=== PATIENT | male | born 1960 | race Two or more races ===

== ENCOUNTER → 2024-03-24 | Outpatient (CLI) | payer MEDICARE, MEDICAID, SELFPAY ==
[2024-03-24 14:53] LABS: Basophils % (Auto) 1 % (0-2.5); Eosinophils # (Auto) 0.1 Thou/mm3 (0.0-0.5); Eosinophils % (Auto) 1 % (0-10); Hematocrit 41.9 % (41.0-53.0); Hemoglobin 13.8 g/dL (13.5-16.0); Immature Granulocytes % (Auto) 0 % (0-0); Immature Granulocytes Auto 0.02 Thou/mm3 (0.00-0.00); Lymphocytes # (Auto) 1.1 Thou/mm3 (1.0-4.8); Lymphocytes % (Auto) 14 % (10-50); Mean Corpuscular HGB Conc 32.9 g/dl (31.0-37.0); Mean Corpuscular Volume 88 fL (80-100); Monocytes # (Auto) 0.6 Thou/mm3 (0.0-0.8); Monocytes % (Auto) 7 % (0-12); Neutrophils # (Auto) 5.8 Thou/mm3 (1.8-7.7); Neutrophils % (Auto) 77 % (37-80); Nucleated Red Blood Cell % 0 /100 WBC (0); Platelet Count 209 Thou/mm3 (140-440); Red Blood Count 4.76 Miln/mm3 (4.50-5.90); White Blood Count 7.6 Thou/mm3 (3.8-10.6)
[2024-03-24 15:05] LABS: Alanine Aminotransferase 33 U/L (10-49); Albumin, Serum 4.4 gm/dL (3.4-4.8); Albumin/Globulin Ratio 1.8 (1.2-2.2); Alkaline Phosphatase 87 U/L (46-116); Anion Gap 7 (7-16); Aspartate Amino Transferase 26 U/L (0-34); BUN/Creatinine Ratio 15 Ratio (12-20); Bilirubin,Total 0.6 mg/dL (0.3-1.2); Blood Urea Nitrogen 18 mg/dL (9-23); Calcium 9.7 mg/dL (8.3-10.6); Calcium (Corrected) 9.7 mg/dL (8.5-10.1); Carbon Dioxide 28.9 mMol/L (20.0-31.0); Chloride 104 mMol/L (98-107); Creatinine (Component) 1.2 mg/dL (0.6-1.3); Globulin 2.5 gm/dL (2.3-3.5); Glucose 89 mg/dL (74-106); Osmolality,Calculated 280 (275-295); Potassium 4.2 mMol/L (3.4-5.1); Sodium 140 mMol/L (136-145); Total Protein 6.9 gm/dL (5.7-8.2); eGFR > 60 See Note
[2024-04-01 03:04] LABS: Alpha-1-Globulin 0.2 g/dL (0.2-0.3); Alpha-2-Globulin 0.5 g/dL (0.5-0.9); Beta-1-Globulin 0.4 g/dL (0.4-0.6); Beta-2-globulin 0.3 g/dL (0.2-0.5); Gamma Globulin 1.3 g/dL (0.8-1.7); Immunoglobulin A 107 mg/dL (70-320); Immunoglobulin G 1426 mg/dL (600-1540); Kappa Light Chain, Free 29.6 mg/L (3.3-19.4); Lambda Light Chain, Free 19.6 mg/L (5.7-26.3)
[2024-04-01 06:28] LABS: Beta 2 Microglobulin 2.28 mg/L (< OR = 2.51); Immunoglobulin M 71 mg/dL (50-300); Kappa/Lambda, Free Ratio 1.51 (0.26-1.65); Protein, total, serum 6.7 g/dL (6.1-8.1)
== END | disposition home or self-care (01) ==
PROVIDERS: PCP Family Medicine; Referring Provider Internal Medicine Hematology & Oncology; Visit Provider Internal Medicine Hematology & Oncology
DX: R80.9 Proteinuria, unspecified (principal)
CPT/HCPCS: 36415; 80053; 82232; 82784; 83521; 84155; 84165; 85025; 86334

== ENCOUNTER 2024-04-01 09:57 | Outpatient (RCR) | payer MEDICARE, MEDICAID, SELFPAY ==
--- NOTE | 2024-04-07 05:26 | CTCFLWUP_ITS ---
Patient: YANN MITCHELL : 1960 Page 2 of 2 FOLLOW UP NOTE DATE OF SERVICE: 04/01/2024 NAME: YANN MITCHELL ACCOUNT: [id number] : 1960 AGE: 63 REASON FOR VISIT: Follow-up on referral abnormal protein ONCOLOGY HISTORY: Patient was referred for MGUS but patient have no monoclonal protein INTERVAL HISTORY: Mr. Mitchell was referred to us because of a M spike in urine protein electrophoresis pattern. 12/27/2021: Urine protein electrophoresis 02/15/2022: Urine protein immunofixation electrophoresis as well as random urine electrophoresis? 02/15/2022: Serum protein electrophoresis, serum immunofixation electrophoresis and quantitative immu noglobulin levels as well as free light chain assay 01/02/2023: Serum protein electrophoresis? 08/27/2023: Serum protein electrophoresis, serum immunofixation electrophoresis, quantitative immunoglo bulin level, free light chain assay DIAGNOSIS: No evidence of monoclonal gammopathy. 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 Tobacco?Use:?Denies ETOH Use:?Quit 15yrs ago - Drank 6 pack/day - for 30yrs Drug?Note:?Denies Social?History?Note:?Lives?with? MEDICATIONS: 1. aspirin - 81 mg 1 tab Daily 2. atorvastatin - 80 mg 1 tab Daily 3. lisinopril - 5 mg 1 tab Daily 4. multivitamin - 1 tab Daily 5. Trintellix - 10 mg 1 tab Daily Medications Last Reconciled by Simona Feng MA on 04/01/2024 ALLERGIES: No Known Drug Allergies REVIEW OF SYSTEMS: A complete 14-point review of systems was performed and is negative except as noted in interval histo ry. PHYSICAL EXAMINATION: VITAL SIGNS: Temperature?97.8, B/P?162/86, Oxygen?Saturation?96% Weight?154?lbs PAIN: 0 - No pain EYE: Conjunctivae is pink. MOUTH: Oral cavity is dry. CHEST: Clear to auscultation. No wheezes or rales audible. CARDIAC: Rhythm regular, no murmurs or gallops present. ABDOMEN: Soft. No hepatosplenomegaly. EXTREMITIES: No pedal edema or cyanosis. LABORATORY DATA: I have personally reviewed and interpreted each of the patient?s relevant lab tests, abnormal finding s are below: Date 03/24/24 ??GLUCOSE,RANDOM?(mg/dL) 89 ??BLOOD?UREA?NITROGEN?(mg/dL) 18 ??CREATININE?(mg/dL) 1.20 ??SODIUM?(mmol/L) 140 ??POTASSIUM?(mmol/L) 4.2 ??CHLORIDE?(mmol/L) 104 ??CrCl?(CandG)?(ml/min) 59.85 ??AST/SGOT?(Unit/L) 26 ??ALT/SGPT?(Unit/L) 33 ??ALKALINE?PHOSPHATASE?(Unit/L) 87 ??BILIRUBIN,?TOTAL?(mg/dL) 0.6 ??PROTEIN?TOTAL?(gm/dl) 6.9 ??ALBUMIN,?SERUM?(gm/dl) 4.4 ??GLOBULIN?(gm/dl) 2.5 ??ALBUMIN/GLOBULIN?RATIO 1.8 ??CALCIUM,?SERUM?(mg/dL) 9.7 ??CALCIUM?SERUM?(CORRECTED)?(mg/dL) 9.7 IMPRESSION/PLAN: Patient will have no monoclonal gammopathy Patient having no anemia Patient have no hypercalcemia or kidney issues Patient do not have any symptoms of crab Patient do not have any other concerning symptoms for malignancy ORDERS: No orders RETURN TO CLINIC: No further appointments in oncology. Patient can follow-up with the primary care as needed basis BILLING AND COMPLIANCE: I reviewed external records from providers outside my specialty as summarized above. I spent a total of 50 minutes on this patient?s care on the day of their visit excluding time spent related to any bi lled procedures. This time includes time spent with the patient as well as time spent documenting in the medical record, reviewing patients records and tests, obtaining history, placing orders, communi cating with other healthcare professionals, counseling the patient, family or caregiver, and/or care coordination for the diagnoses above. Electronically Signed by: Monroe Law MD T: 5:24 AM CC: PCP: Guanaco Vargas Referring: Guanaco Vargas This document was completed utilizing speech recognition software. Grammatical errors, random word in sertions, pronoun errors, and incomplete sentences are an occasional consequence of this system due t o software limitations, ambient noise, and hardware issues. Any formal questions or concerns about th e content, text or information contained within the body of this dictation should be directly address ed to the provider for clarification.
== END 2024-04-22 23:59 | disposition home or self-care (01) ==
LOC: SCTC 09:57
PROVIDERS: PCP Obstetrics & Gynecology; Referring Provider Family Medicine; Visit Provider Internal Medicine Hematology & Oncology
DX: R80.9 Proteinuria, unspecified (principal)
CPT/HCPCS: 99213; G0463

== ENCOUNTER 2024-04-24 07:53 | Outpatient (CLI) | payer MEDICARE, MEDICAID, SELFPAY ==
[2024-04-21 13:24] VITALS: BMI 26.6
[2024-04-22 15:23] LABS: Basophils % (Auto) 1 % (0-2.5); Eosinophils % (Auto) 1 % (0-10); Hematocrit 42.2 % (41.0-53.0); Hemoglobin 14.1 g/dL (13.5-16.0); Immature Granulocytes % (Auto) 0 % (0-0); Immature Granulocytes Auto 0.02 Thou/mm3 (0.00-0.00); Lymphocytes # (Auto) 1.1 Thou/mm3 (1.0-4.8); Lymphocytes % (Auto) 18 % (10-50); Mean Corpuscular HGB Conc 33.4 g/dl (31.0-37.0); Mean Corpuscular Hemoglobin 29.9 pg (25.0-35.0); Mean Corpuscular Volume 89 fL (80-100); Monocytes # (Auto) 0.5 Thou/mm3 (0.0-0.8); Monocytes % (Auto) 8 % (0-12); Neutrophils # (Auto) 4.6 Thou/mm3 (1.8-7.7); Neutrophils % (Auto) 73 % (37-80); Nucleated Red Blood Cell % 0 /100 WBC (0); Platelet Count 191 Thou/mm3 (140-440); RDW Standard Deviation 42.7 fL (35.1-43.9); Red Blood Count 4.72 Miln/mm3 (4.50-5.90); White Blood Count 6.3 Thou/mm3 (3.8-10.6)
[2024-04-22 15:29] LABS: Partial Thromboplastin Time 25.9 Seconds (22.0-36.0); Prothrombin Time 10.9 Seconds (9.0-12.2)
[2024-04-24] VITALS (12 sets, daily range): BP systolic 127–173; BP diastolic 77–96; PULSE 60–69; RESP 16–23; TEMP 36.6–37.2; O2SAT 93–100
--- NOTE | 2024-04-24 08:30 | XR_ITS ---
Examination: CT-guided percutaneous bone marrow aspiration right posterior superior iliac crest CT-guided percutaneous bone biopsy deep right posterior superior iliac crest INDICATIONS: Multiple myeloma diagnosis Date and time of procedure: April 24, 2024 0940 hours Informed consent provided. A timeout was completed verifying correct patient, procedure, site and positioning. . Technique: Axial 3 mm sections were obtained for localization of the right posterior superior iliac crest Appropriate area is marked. The patient's site was prepped and draped in sterile fashion Maximal sterile barrier technique utilized, including hand hygiene Local anesthesia was obtained with 1% lidocaine. Low dose protocols were performed. One or more of the following dose reduction techniques were used; automated exposure control, adjustment of the mA and/or KV according to patient size, use of iterative reconstruction technique. Utilizing CT fluoroscopic guidance 14-gauge bone biopsy needle placed in the right posterior superior iliac crest 5 cc marrow aspirate obtained, specimens deemed satisfactory 5 cm bone core obtained for cytologic analysis Patient appears in stable condition during this procedure. At completion of the procedure, the patient is in satisfactory condition. Estimated blood loss 2 cc Complete pathology report to follow. Impression: Successful CT-guided percutaneous bone marrow aspiration right posterior superior iliac crest Successful CT-guided percutaneous bone biopsy deep right posterior superior iliac crest
[2024-04-24] MEDS: SODIUM CHLORIDE 0.9% 500 ML 500 ML 50 ML IV (09:12)
[2024-04-24] MEDS: fentaNYL CIT INJ 50 mCg/ML AMP 2ML 75 MCG IVP (10:11)
[2024-04-24 10:28] LABS: Flow Cytometry* See Sep Rpt
== END 2024-04-24 11:25 | disposition home or self-care (01) ==
PROVIDERS: Radiology Diagnostic Radiology; PCP Obstetrics & Gynecology; Referring Provider Internal Medicine Hematology & Oncology; Visit Provider Internal Medicine Hematology & Oncology
DX: R80.9 Proteinuria, unspecified (principal); Z86.73 Personal history of transient ischemic attack (TIA), and cerebral infarction without residual deficits; Z01.812 Encounter for preprocedural laboratory examination
CPT/HCPCS: 38221; 36415; 77012; 85025; 85610; 85730; 99152; J3010; J7040

== ENCOUNTER 2024-06-02 15:33 | Outpatient (RCR) | payer MEDICARE, MEDICAID, SELFPAY ==
--- NOTE | 2024-06-02 16:21 | CTCFLWUP_ITS ---
Patient: YANN MITCHELL : 1960 Page 2 of 2 FOLLOW UP NOTE DATE OF SERVICE: 06/02/2024 NAME: YANN MITCHELL ACCOUNT: [id number] : 1960 AGE: 64 INTERVAL HISTORY: Patient is here to discuss bone marrow biopsy results. Mr. Mitchell was referred to us because of a M spike in urine protein electrophoresis pattern. 12/27/2021: Urine protein electrophoresis 02/15/2022: Urine protein immunofixation electrophoresis as well as random urine electrophoresis? 02/15/2022: Serum protein electrophoresis, serum immunofixation electrophoresis and quantitative immunoglobulin levels as well as free light chain assay 01/02/2023: Serum protein electrophoresis? 08/27/2023: Serum protein electrophoresis, serum immunofixation electrophoresis, quantitative immunoglobulin level, free light chain assay ONCOLOGY HISTORY: Patient was referred for MGUS but patient have no monoclonal protein INTERVAL HISTORY: Mr. Mitchell was referred to us because of a M spike in urine protein electrophoresis pattern. 12/27/2021: Urine protein electrophoresis 02/15/2022: Urine protein immunofixation electrophoresis as well as random urine electrophoresis? 02/15/2022: Serum protein electrophoresis, serum immunofixation electrophoresis and quantitative immunoglobulin levels as well as free light chain assay 01/02/2023: Serum protein electrophoresis? 08/27/2023: Serum protein electrophoresis, serum immunofixation electrophoresis, quantitative immunoglobulin level, free light chain assay DIAGNOSIS: No evidence of monoclonal gammopathy. 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 Tobacco?Use:?Denies ETOH Use:?Quit 15yrs ago - Drank 6 pack/day - for 30yrs Drug?Note:?Denies Social?History?Note:?Lives?with? MEDICATIONS: 1. aspirin - 81 mg 1 tab Daily 2. atorvastatin - 80 mg 1 tab Daily 3. lisinopril - 5 mg 1 tab Daily 4. multivitamin - 1 tab Daily 5. Trintellix - 10 mg 1 tab Daily Medications Last Reconciled by Simona Feng MA on 04/01/2024 ALLERGIES: No Known Drug Allergies REVIEW OF SYSTEMS: A complete 14-point review of systems was performed and is negative except as noted in interval history. PHYSICAL EXAMINATION: VITAL SIGNS: EYE: Conjunctivae is pink. MOUTH: Oral cavity is dry. CHEST: Clear to auscultation. No wheezes or rales audible. CARDIAC: Rhythm regular, no murmurs or gallops present. ABDOMEN: Soft. No hepatosplenomegaly. EXTREMITIES: No pedal edema or cyanosis. LABORATORY DATA: I have personally reviewed and interpreted each of the patient?s relevant lab tests, abnormal findings are below: Date 04/22/24 ??WHITE?BLOOD?COUNT?(Thou/mm3) 6.3 ??RED?BLOOD?COUNT?(Miln/mm3) 4.72 ??HEMOGLOBIN?(gm/dl) 14.1 ??HEMATOCRIT?(%) 42.2 ??PLATELET?COUNT?(Thou/mm3) 191 ??NEUTROPHILS?%,?AUTO?(%) 73 ??LYMPH?%,?AUTO?(%) 18 ??NEUTROPHILS,?AUTO?(Thou/mm3) 4.6 ASSESSMENT/PLAN: Patient having no anemia Patient have no hypercalcemia or kidney issues Patient do not have any symptoms of crab Patient do not have any other concerning symptoms for malignancy Bone marrow biopsy on 04/24/2024 is negative CBC CMP SPEP serum immunofluorescence 24-hour urine protein UPEP Referral to bill collector RETURN TO CLINIC: 6 months BILLING AND COMPLIANCE: I reviewed external records from providers outside my specialty as summarized above. I spent a total of 50 minutes on this patient?s care on the day of their visit excluding time spent related to any billed procedures. This time includes time spent with the patient as well as time spent documenting in the medical record, reviewing patients records and tests, obtaining history, placing orders, communicating with other healthcare professionals, counseling the patient, family or caregiver, and/or care coordination for the diagnoses above. Electronically Signed by: Monroe Law MD T: 4:18 PM CC: PCP: Simona Sal Referring: Simona Sal This document was completed utilizing speech recognition software. Grammatical errors, random word insertions, pronoun errors, and incomplete sentences are an occasional consequence of this system due to software limitations, ambient noise, and hardware issues. Any formal questions or concerns about the content, text or information contained within the body of this dictation should be directly addressed to the provider for clarification.
== END 2024-06-20 23:59 | disposition home or self-care (01) ==
LOC: SCTC 15:33
PROVIDERS: PCP Obstetrics & Gynecology; Referring Provider Obstetrics & Gynecology; Visit Provider Internal Medicine Hematology & Oncology
DX: Z71.2 Person consulting for explanation of examination or test findings (principal)
CPT/HCPCS: 99213; G0463

== ENCOUNTER → 2024-11-04 | Outpatient (CLI) | payer MEDICARE, MEDICAID, SELFPAY ==
[2024-11-04 14:22] LABS: Basophils # (Auto) 0.0 Thou/mm3 (0.0-0.2); Basophils % (Auto) 1 % (0-2.5); Eosinophils # (Auto) 0.0 Thou/mm3 (0.0-0.5); Eosinophils % (Auto) 0 % (0-10); Hematocrit 39.2 % (41.0-53.0); Hemoglobin 13.8 g/dL (13.5-16.0); Immature Granulocytes Auto 0.02 Thou/mm3 (0.00-0.00); Lymphocytes # (Auto) 1.0 Thou/mm3 (1.0-4.8); Lymphocytes % (Auto) 14 % (10-50); Mean Corpuscular HGB Conc 35.2 g/dl (31.0-37.0); Mean Corpuscular Hemoglobin 31.2 pg (25.0-35.0); Mean Corpuscular Volume 89 fL (80-100); Monocytes # (Auto) 0.5 Thou/mm3 (0.0-0.8); Monocytes % (Auto) 7 % (0-12); Neutrophils # (Auto) 5.4 Thou/mm3 (1.8-7.7); Neutrophils % (Auto) 77 % (37-80); Nucleated Red Blood Cell # 0.00 Thou/mm3 (0.00-0.00); Nucleated Red Blood Cell % 0 /100 WBC (0); Platelet Count 193 Thou/mm3 (140-440); RDW Standard Deviation 41.9 fL (35.1-43.9); Red Blood Count 4.43 Miln/mm3 (4.50-5.90); White Blood Count 7.0 Thou/mm3 (3.8-10.6)
[2024-11-04 14:32] LABS: Alanine Aminotransferase 22 U/L (10-49); Albumin, Serum 4.0 gm/dL (3.4-4.8); Albumin/Globulin Ratio 1.7 (1.2-2.2); Alkaline Phosphatase 80 U/L (46-116); Anion Gap 9 (7-16); Aspartate Amino Transferase 23 U/L (0-34); BUN/Creatinine Ratio 9 Ratio (12-20); Bilirubin,Total 0.9 mg/dL (0.3-1.2); Blood Urea Nitrogen 12 mg/dL (9-23); Calcium 9.2 mg/dL (8.3-10.6); Calcium (Corrected) 9.2 mg/dL (8.5-10.1); Carbon Dioxide 30.2 mMol/L (20.0-31.0); Chloride 107 mMol/L (98-107); Creatinine (Component) 1.3 mg/dL (0.6-1.3); Globulin 2.4 gm/dL (2.3-3.5); Glucose 133 mg/dL (74-106); Osmolality,Calculated 292 (275-295); Potassium 4.1 mMol/L (3.4-5.1); Sodium 146 mMol/L (136-145); Total Protein 6.4 gm/dL (5.7-8.2); eGFR > 60 See Note
[2024-11-04 14:36] LABS: Collection Type, Urine Clean Catch; RBC,Urine 0 /hpf (0-3)
[2024-11-04 14:51] LABS: Bilirubin,Urine Negative (Negative); Blood,Urine Negative (Negative); Clarity,Urine Clear (Clear/Hazy); Color,Urine Yellow (Lt Yel-Yel); Glucose, Urine Negative (Negative); Ketones,Urine Negative (Negative); Leukocyte Esterase,Urine Negative (Negative); Nitrite,Urine Negative (Negative); PH,Urine 7.0 (5.0-7.0); Protein,Urine Negative (Neg - Trace); Specific Gravity,Urine 1.020 (1.001-1.035); Squamous Epithelial Cell,Urine < 1 /hpf (0-5); Urobilinogen,Urine Negative mg/dL (0.0-1.0); WBC,Urine 1 /hpf (0-5)
[2024-11-09 08:49] LABS: Albumin 4.0 g/dL (3.8-4.8); Alpha-1-Globulin 0.2 g/dL (0.2-0.3); Alpha-2-Globulin 0.5 g/dL (0.5-0.9); Beta-1-Globulin 0.4 g/dL (0.4-0.6); Beta-2-globulin 0.3 g/dL (0.2-0.5); Gamma Globulin 1.0 g/dL (0.8-1.7)
[2024-11-10 07:47] LABS: Protein, total, serum 6.4 g/dL (6.1-8.1)
== END | disposition home or self-care (01) ==
PROVIDERS: PCP Obstetrics & Gynecology; Referring Provider Internal Medicine Hematology & Oncology; Visit Provider Internal Medicine Hematology & Oncology
DX: R80.9 Proteinuria, unspecified (principal)
CPT/HCPCS: 36415; 80053; 81001; 84155; 84165; 85025; 86335

== ENCOUNTER → 2024-11-10 | Outpatient (CLI) | payer MEDICARE, MEDICAID, SELFPAY ==
[2024-11-10 13:13] LABS: Alanine Aminotransferase 24 U/L (10-49); Albumin, Serum 4.1 gm/dL (3.4-4.8); Alkaline Phosphatase 77 U/L (46-116); Aspartate Amino Transferase 25 U/L (0-34); Bilirubin,Direct 0.2 mg/dL (0.0-0.3); Bilirubin,Total 0.5 mg/dL (0.3-1.2); Total Protein 6.5 gm/dL (5.7-8.2)
[2024-11-10 17:56] LABS: Protein Total, Urine 12 mg/dL (1-14)
[2024-11-10 17:58] LABS: Protein Total, 24 hr Urine 157 mg/24hr (<149); Protein Total, Urine Volume 1310 mL/24hr (600-1800)
== END | disposition home or self-care (01) ==
PROVIDERS: PCP Obstetrics & Gynecology; Referring Provider Internal Medicine Hematology & Oncology; Visit Provider Otolaryngology
DX: B35.1 Tinea unguium (principal)
CPT/HCPCS: 36415; 80076; 84156

== ENCOUNTER 2024-11-24 15:00 | Outpatient (RCR) | payer MEDICARE, MEDICAID, SELFPAY ==
--- NOTE | 2024-12-01 00:55 | CTCFLWUP_ITS ---
Patient: YANN MITCHELL : 1960 Page 6 of 7 FOLLOW UP NOTE DATE OF SERVICE: 11/24/2024 NAME: YANN MITCHELL ACCOUNT: [id number] : 1960 AGE: 64 INTERVAL HISTORY: Mr. Mitchell was referred to us because of a M spike in urine protein electrophoresis pattern. Patient had a bone marrow biopsy which do not reveal a myeloma. 12/27/2021: Urine protein electrophoresis 02/15/2022: Urine protein immunofixation electrophoresis as well as random urine electrophoresis? 02/15/2022: Serum protein electrophoresis, serum immunofixation electrophoresis and quantitative immunoglobulin levels as well as free light chain assay 01/02/2023: Serum protein electrophoresis? 08/27/2023: Serum protein electrophoresis, serum immunofixation electrophoresis, quantitative immunoglobulin level, free light chain assay ONCOLOGY HISTORY: DIAGNOSIS: No evidence of monoclonal gammopathy. 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 Tobacco?Use:?Denies ETOH Use:?Quit 15yrs ago - Drank 6 pack/day - for 30yrs Drug?Note:?Denies Social?History?Note:?Lives?with? MEDICATIONS: 1. aspirin - 81 mg 1 tab Daily 2. atorvastatin - 80 mg 1 tab Daily 3. lisinopril - 5 mg 1 tab Daily 4. multivitamin - 1 tab Daily 5. omeprazole - 40 mg 1 Capsule Daily 6. Trintellix - 10 mg 1 tab Daily Medications Last Reconciled by Simona Feng MA on 11/24/2024 ALLERGIES: No Known Drug Allergies REVIEW OF SYSTEMS: A complete 14-point review of systems was performed and is negative except as noted in interval history. PHYSICAL EXAMINATION: VITAL SIGNS: Temperature?98, B/P?130/75, Oxygen?Saturation?96% Weight?142?lbs PAIN: 0 - No pain ECOG Performance Status: None EYE: Conjunctivae is pink. MOUTH: Oral cavity is dry. CHEST: Clear to auscultation. No wheezes or rales audible. CARDIAC: Rhythm regular, no murmurs or gallops present. ABDOMEN: Soft. No hepatosplenomegaly. EXTREMITIES: No pedal edema or cyanosis. LABORATORY DATA: I have personally reviewed and interpreted each of the patient?s relevant lab tests, abnormal findings are below: Date 04/22/24 11/04/24 11/10/24 ??WHITE?BLOOD?COUNT?(Thou/mm3) 6.3 7.0 ? ??RED?BLOOD?COUNT?(Miln/mm3) 4.72 4.43?L ? ??HEMOGLOBIN?(gm/dl) 14.1 13.8 ? ??HEMATOCRIT?(%) 42.2 39.2?L ? ??PLATELET?COUNT?(Thou/mm3) 191 193 ? ??NEUTROPHILS?%,?AUTO?(%) 73 77 ? ??LYMPH?%,?AUTO?(%) 18 14 ? ??NEUTROPHILS,?AUTO?(Thou/mm3) 4.6 5.4 ? ??GLUCOSE,RANDOM?(mg/dL) ? 133?H ? ??BLOOD?UREA?NITROGEN?(mg/dL) ? 12 ? ??CREATININE?(mg/dL) ? 1.30 ? ??SODIUM?(mmol/L) ? 146?H ? ??POTASSIUM?(mmol/L) ? 4.1 ? ??CHLORIDE?(mmol/L) ? 107 ? ??CrCl?(CandG)?(ml/min) ? 55.08 ? ??AST/SGOT?(Unit/L) ? 23 25 ??ALT/SGPT?(Unit/L) ? 22 24 ??ALKALINE?PHOSPHATASE?(Unit/L) ? 80 77 ??BILIRUBIN,?TOTAL?(mg/dL) ? 0.9 0.5 ??PROTEIN?TOTAL?(gm/dl) ? 6.4 6.5 ??ALBUMIN,?SERUM?(gm/dl) ? 4.0 4.1 ??GLOBULIN?(gm/dl) ? 2.4 ? ??ALBUMIN/GLOBULIN?RATIO ? 1.7 ? ??CALCIUM,?SERUM?(mg/dL) ? 9.2 ? ??CALCIUM?SERUM?(CORRECTED)?(mg/dL) ? 9.2 ? ASSESSMENT/PLAN: Patient having no anemia Patient have no hypercalcemia or kidney issues Patient do not have any symptoms of crab Patient do not have any other concerning symptoms for malignancy Bone marrow biopsy on 04/24/2024 is negative CBC CMP SPEP serum immunofluorescence 24-hour urine protein UPEP Continue to follow with bushel girl and primary care ORDERS: Order # Description [id number] MD Follow Up 6 Month [id number] Serum Protein Electrophoresis + Serum Immunofixation Electrophoresis + Quant Immunoglobulins + 24 Hour Urine for total Protein + Free kappa and lambda light chains plus ratio, quantitative RETURN TO CLINIC: I reviewed the diagnosis, prognosis, and recommended treatment/procedure options with the patient (and/or their legal bank representative), including the potential benefits, risks, side effects and alternative therapies. We also discussed the option of no treatment and the possibility of clinical trial participation, if applicable. All questions were addressed, and they demonstrated understanding. They provided informed consent to proceed with the proposed plan of care. BILLING AND COMPLIANCE: I reviewed external records from providers outside my specialty as summarized above. I spent a total of 50 minutes on this patient?s care on the day of their visit excluding time spent related to any billed procedures. This time includes time spent with the patient as well as time spent documenting in the medical record, reviewing patients records and tests, obtaining history, placing orders, communicating with other healthcare professionals, counseling the patient, family or caregiver, and/or care coordination for the diagnoses above. Electronically Signed by: {Object.Sanct_ID*[email or web address]@M}, {Object.Sanct_ID*[email or web address]@U} D: {Object.Sanct_Date} T: {Object.Sanct_Time} CC: PCP: Simona Sal Referring: Simona Sal This document was completed utilizing speech recognition software. Grammatical errors, random word insertions, pronoun errors, and incomplete sentences are an occasional consequence of this system due to software limitations, ambient noise, and hardware issues. Any formal questions or concerns about the content, text or information contained within the body of this dictation should be directly addressed to the provider for clarification.
== END 2024-12-21 23:59 | disposition home or self-care (01) ==
LOC: SCTC 15:00
PROVIDERS: PCP Obstetrics & Gynecology; Referring Provider Obstetrics & Gynecology; Visit Provider Internal Medicine Hematology & Oncology
DX: R80.9 Proteinuria, unspecified (principal)
CPT/HCPCS: 99212; G0463

== ENCOUNTER → 2025-01-22 | Outpatient (CLI) | payer MEDICARE, MEDICAID, SELFPAY ==
[2025-01-22 13:16] LABS: Misc Send Out* See Sep Rpt
[2025-01-22 13:46] LABS: Basophils # (Auto) 0.0 Thou/mm3 (0.0-0.2); Basophils % (Auto) 0 % (0-2.5); Eosinophils # (Auto) 0.0 Thou/mm3 (0.0-0.5); Eosinophils % (Auto) 0 % (0-10); Hematocrit 43.0 % (41.0-53.0); Hemoglobin 14.5 g/dL (13.5-16.0); Immature Granulocytes Auto 0.03 Thou/mm3 (0.00-0.00); Lymphocytes # (Auto) 0.5 Thou/mm3 (1.0-4.8); Lymphocytes % (Auto) 8 % (10-50); Mean Corpuscular HGB Conc 33.7 g/dl (31.0-37.0); Mean Corpuscular Hemoglobin 31.5 pg (25.0-35.0); Mean Corpuscular Volume 94 fL (80-100); Monocytes # (Auto) 0.2 Thou/mm3 (0.0-0.8); Monocytes % (Auto) 3 % (0-12); Neutrophils # (Auto) 5.6 Thou/mm3 (1.8-7.7); Neutrophils % (Auto) 88 % (37-80); Nucleated Red Blood Cell # 0.00 Thou/mm3 (0.00-0.00); Nucleated Red Blood Cell % 0 /100 WBC (0); Platelet Count 207 Thou/mm3 (140-440); RDW Standard Deviation 43.6 fL (35.1-43.9); Red Blood Count 4.60 Miln/mm3 (4.50-5.90); White Blood Count 6.3 Thou/mm3 (3.8-10.6)
[2025-01-22 13:56] LABS: Misc Fluid, WBC 1916 /cmm
[2025-01-22 13:57] LABS: Parathyroid Hormone Intact 61.3 pg/ml (18.5-88.0)
[2025-01-22 13:58] LABS: Misc Fld, Source Knee
[2025-01-22 13:59] LABS: Misc Fld, Color Yellow; Misc Fluid, Mononuclear WBC 90 %; Misc Fluid, Polynuclear 10 %; Misc Fluid, RBC 4000 /cmm; Miscellaneous Fld, Appearance Cloudy
[2025-01-22 14:07] LABS: Alanine Aminotransferase 35 U/L (10-49); Albumin, Serum 4.3 gm/dL (3.4-4.8); Albumin/Globulin Ratio 1.8 (1.2-2.2); Alkaline Phosphatase 84 U/L (46-116); Anion Gap 8 (7-16); Aspartate Amino Transferase 31 U/L (0-34); BUN/Creatinine Ratio 12 Ratio (12-20); Bilirubin,Total 1.0 mg/dL (0.3-1.2); Blood Urea Nitrogen 14 mg/dL (9-23); C-Reactive Protein < 0.5 mg/dL (0.0-0.9); Calcium 9.8 mg/dL (8.3-10.6); Calcium (Corrected) 9.8 mg/dL (8.5-10.1); Carbon Dioxide 29.9 mMol/L (20.0-31.0); Chloride 105 mMol/L (98-107); Creatinine (Component) 1.2 mg/dL (0.6-1.3); Globulin 2.4 gm/dL (2.3-3.5); Glucose 98 mg/dL (74-106); Magnesium 1.9 mg/dL (1.6-2.6); Osmolality,Calculated 285 (275-295); Phosphorous 3.2 mg/dL (2.4-5.1); Potassium 4.4 mMol/L (3.4-5.1); Sodium 143 mMol/L (136-145); Total Protein 6.7 gm/dL (5.7-8.2); Uric Acid 5.6 mg/dL (3.7-9.2); eGFR > 60 See Note
[2025-01-22 14:28] LABS: Sed Rate (ESR) 1 mm/hr (0-20)
[2025-01-22 14:44] LABS: Hepatitis A Antibody IgM Non Reactive (Non React); Hepatitis B Surface Antigen Non Reactive (Non React); Vitamin D 25 Hydroxy Total 43.8 ng/mL (7.3-40.2)
[2025-01-22 14:49] LABS: Hepatitis B Core Antibody IgM Non Reactive (Non React); Hepatitis C Antibody Non Reactive (Non React)
[2025-01-23 07:06] LABS: Misc Send Out* See Sep Rpt
[2025-02-02 06:28] LABS: ANCA Screen POSITIVE (NEGATIVE); Atypical P-ANCA Titer 1:160 titer (<1:20); Complement Component C3* 102 mg/dL (82-185); Complement Component C4c* 27 mg/dL (15-53); Myeloperoxidase Ab <1.0 AI (<1.0); Proteinase-3 Ab <1.0 AI (<1.0)
== END | disposition home or self-care (01) ==
LOC: COPL 12:47
PROVIDERS: PCP Obstetrics & Gynecology
DX: E21.3 Hyperparathyroidism, unspecified (principal); E78.49 Other hyperlipidemia; K21.9 Gastro-esophageal reflux disease without esophagitis; M17.11 Unilateral primary osteoarthritis, right knee; N18.2 Chronic kidney disease, stage 2 (mild); R76.8 Other specified abnormal immunological findings in serum; Z86.73 Personal history of transient ischemic attack (TIA), and cerebral infarction without residual deficits
CPT/HCPCS: 36415; 80053; 80074; 82306; 83735; 83970; 84100; 84550; 85025; 85652; 86021; 86036; 86140; 86160; 89051

== ENCOUNTER 2025-01-23 11:20 | Day surgery (SDC) | payer MEDICARE, MEDICAID, SELFPAY ==
[2025-01-23] VITALS (9 sets, daily range): BP systolic 115–174; BP diastolic 67–83; PULSE 68–79; RESP 12–20; TEMP 36.8; O2SAT 97–100; BMI 24.4
[2025-01-23] MEDS: SODIUM CHLORIDE 0.9% 500 ML 500 ML 20 ML IV (12:57)
[2025-01-23] MEDS: fentaNYL CIT INJ 50 mCg/ML AMP 2ML (ASD USE ONLY) IVP (13:00)
[2025-01-23] MEDS: MIDAZOLAM INJ 1 MG/ML VIAL 2 ML (ASD USE ONLY) 2 MG IVP (13:00)
--- NOTE | 2025-01-23 13:15 | SUR.PHASEII ---
1315 patient arrived to recovery, report received from Layla HUTCHINSON
--- NOTE | 2025-01-23 14:06 | SUR.PHASEII ---
1406 Patient meets discharge criteria from recovery, awake and alert, breathing unlabored, vital signs stable, denies pain and nausea, discharge instructions given to patient and patients daughter with the assistance of the hospital tobacco primer machine operator Genoveva, daughter signed discharge instructions, patient given all his belongings prior to discharge, transported via wheelchair and left in a private vehicle.
== END 2025-01-23 14:06 | disposition home or self-care (01) ==
PROVIDERS: PCP Nurse Practitioner Family; Referring Provider Specialist; Visit Provider Specialist
PROC: 0DBE8ZX Excision of Large Intestine, Via Natural or Artificial Opening Endoscopic, Diagnostic (ICD-10-PCS; CPT 45380; principal; 2025-01-23 11:15)
DX: Z12.11 Encounter for screening for malignant neoplasm of colon (principal); K64.9 Unspecified hemorrhoids; K57.30 Diverticulosis of large intestine without perforation or abscess without bleeding
CPT/HCPCS: G0121; A4649; J1200; J2250; J3010; J7999

== ENCOUNTER → 2025-02-23 | Outpatient (CLI) | payer MEDICARE, MEDICAID, SELFPAY ==
--- NOTE | 2025-02-23 15:15 | XR_ITS ---
Examination, : Bilateral knees 6 views TECHNIQUE: AP Albac lateral each knee total 6 views Date and time: February 23, 2025: 1548 hours INDICATIONS: Bilateral knee pain chronic years. FINDINGS: Advanced right knee tricompartment osteoarthritis most severe lateral joint space Moderate left knee tricompartment osteoarthritis No fractures views Impression: Advanced right knee tricompartment osteoarthritis Moderate left knee tricompartment osteoarthritis:
== END | disposition home or self-care (01) ==
PROVIDERS: PCP Nurse Practitioner Family; Referring Provider Nurse Practitioner Family; Visit Provider Radiology Diagnostic Radiology
DX: M17.0 Bilateral primary osteoarthritis of knee (principal)
CPT/HCPCS: 73562